=== PATIENT | female | born 1975 | race Caucasian/White ===

== ENCOUNTER 2023-12-07 09:08 | Emergency (ER) | payer BC, SELFPAY ==
[2023-12-07 09:22] VITALS: BP 126/87
[2023-12-07 10:09] LABS: % Basophils 0.5 % (0-2); % Eosinophils 2.3 % (0-6); % Immature Granulocytes 0.2 % (0-0.5); % Lymphocytes 21.8 % (20.5-51.1); % Monocytes 5.8 % (1.7-9.3); % Neutrophils 69.4 % (42.2-75.2); Absolute Basophils 0.1 10^3/uL (0-0.2); Absolute Eosinophils 0.2 10^3/uL (0-0.7); Absolute Lymphocytes 2.1 10^3/uL (1.2-3.4); Absolute Monocytes 0.6 10^3/uL (0.1-0.6); Absolute Neutrophils 6.6 10^3/uL (1.4-6.5); Hematocrit 40.1 % (37.0-47.0); Hemoglobin 13.6 g/dL (12.0-16.0); Mean Corp Hgb Conc. 33.9 g/dL (33.0-37.0); Mean Corpuscular Hgb 29.8 pg (27.0-31.0); Mean Corpuscular Volume 87.9 fL (81.0-99.0); Mean Platelet Volume 10.4 fL (7.4-10.4); Nucleated Red Blood Cells % 0 %; Platelet Count 276 10^3/uL (130-400); Red Blood Cell Count 4.56 10^6/uL (4.20-5.40); Red Cell Dist. Width 13.2 % (11.5-14.5); White Blood Cell Count 9.5 10^3/uL (4.8-10.8)
[2023-12-07 10:11] LABS: HCG, Serum Qualitative Screen Negative
[2023-12-07 10:13] LABS: ALT (SGPT) 30 U/L (0-35); AST (SGOT) 29 U/L (14-36); Albumin 4.2 g/dl (3.5-5.0); Alkaline Phosphatase 116 U/L (38-126); Blood Urea Nitrogen 11 mg/dl (7-17); Calcium 9.2 mg/dl (8.4-10.2); Carbon Dioxide 26 mmol/L (22-30); Chloride 106 mmol/L (98-107); Glucose 96 mg/dl (70-99); Lipase 105 U/L (23-300); Potassium 3.9 mmol/L (3.5-5.1); Sodium 137 mmol/L (135-145); Total Bilirubin 0.7 mg/dl (0.2-1.3); Total Protein 7.1 g/dl (6.3-8.2); eGFR > 60.00
[2023-12-07 10:24] LABS: Troponin I < 0.012 ng/ml
--- NOTE | 2023-12-07 11:12 | ED.GENMED ---
History of Present Illness
General
Chief Complaint: Chest Pain
Source: patient and family
Exam Limitations: none
Time Seen by Provider: 12/07/23 10:51
Travel History
Have you had any contact with someone who has COVID-19?: No
Do you have any symptoms of coronavirus? Fever > 100 degrees, chills, cough, shortness of breath, sore throat, loss of taste or smell, muscle aches, or headache?: No
History of Present Illness
History of Present Illness:
48-year-old female who presents with intermittent pain in her right lower chest wall/right upper quadrant of her abdomen that began this past Sunday while at work. The patient states she had really eaten anything that day but had a coffee. The
pain came on last about 50 minutes. She states she had another episode later in the day but was not that bad. Since then she has had occasional episodes but had one today that made her concerned. She states that radiate up toward her right neck.
No rash. She denies any hemoptysis. No shortness of breath. No palpitations. No injury. No leg swelling. No leg pain. Probable. No pain with eating.
Past History
Past History
ED Past Medical History: Other (Multiple sclerosis)
ED Past Surgical History: Tonsilectomy
Social History
Tobacco: Non-smoker
Drug: None
Personal:
Living: with family
Employment: Other
Family History
Family History: Other
Phy Exam
Physical Exam
Physical Exam:
CONSTITUTIONAL Patient alert and oriented to person, place and time. Well-appearing. Vital signs reviewed.
HEAD atraumatic, normocephalic.
EYES eyelids normal to inspection, Pupils equally round and reactive to light, Extraocular muscles intact, Conjunctiva normal, Sclera normal.
NECK normal range of motion, Trachea midline, no jugular venous distention.
RESPIRATORY CHEST No respiratory distress noted, Chest expansion equal, Bilateral breath sounds clear.
CARDIOVASCULAR regular rate and rhythm, Heart sounds normal.
ABDOMEN mild right upper quadrant tenderness, Bowel sounds normal. No distention.
BACK normal inspection, no obvious deformities
UPPER EXTREMITY range of motion normal, Motor strength normal, no cyanosis, no edema.
LOWER EXTREMITY range of motion normal, Motor strength normal, no cyanosis, no edema.
NEURO Speech normal, No focal motor deficits, Dodie coma scale 15, Memory normal, Cranial Nerves intact to screening exam.
SKIN skin warm, dry, and normal in color.
PSYCHIATRIC patient oriented to person place and time, Normal affect.
Scores
Heart Score for Chest Pain Patients
STEMI patient?: Not applicable
Course
Orders/Labs/Results
Orders:
Orders
12/07/23 09:09
ECG [Electrocardiogram (*1)] Urgent
Reason for Study: Chest Pain
EKG- Treatment ONCE
12/07/23 09:29
Test Result ONCE
12/07/23 09:47
Complete Blood Count/With Diff Urgent
Comprehensive Metabolic Panel Urgent
HCG, Serum Qualitative Screen Urgent
Lipase Urgent
Troponin I Urgent
12/07/23 11:15
Add On- LAB Stat
Tests Added?: lipase
12/07/23 12:10
US Abdomen Complete/Upper Urgent
Comment:
Reason For Exam: RUQ pain
12/07/23 12:24
DDimer [D-Dimer] Stat
12/07/23 13:51
CT Chest Pe Study Stat
Comment:
Reason For Exam: R sided cp, abnormal DDIMER
12/07/23 14:57
Morphine Sulfate 4 mg IV NOW STA
Abnormal Lab Results
12/07/23 12/07/23
09:47 12:24
Absolute Neuts (auto) 6.6 H 10^3/uL
(1.4-6.5)
D-Dimer 0.60 H ug/mlFEU
(0.00-0.50)
12/07/23 09:47
12/07/23 09:47
Vital Signs
Initial and Last Documented VS:
Initial Vital Signs
Temp Pulse Resp BP Pulse Ox
98.3 F 89 16 126/87 97
12/07/23 09:22 12/07/23 09:22 12/07/23 09:22 12/07/23 09:22 12/07/23 09:22
Last Documented Vital Signs
Temp Pulse Resp BP Pulse Ox
98.3 F 80 16 126/77 97
12/07/23 09:22 12/07/23 16:15 12/07/23 16:15 12/07/23 16:00 12/07/23 16:15
MDM/Problems Addressed
Differential Diagnosis Includes:
PE, gallbladder disease, pleuritis, pneumonia, pneumothorax
MDM/Problems Addressed:
Right-sided chest pain
*Radiology
Radiology exam reviewed: radiology read reviewed
*Pulse Oximetry
Patient hypoxic: no
*EKG
Interpreted by ED Provider?: Yes
Rate: normal
Rhythm: sinus
[place]: normal axis
QRS Pattern: normal QRS
Ischemia: no ischemia
*Gluing Machine Operator Automatic Interpretation
Rate: normal
Interpretation: normal
Rhythm: sinus
*Critical Care Note
Total Time (30-74mins, 75-104mins- exclusive of procedures): Not Applicable
Data Reviewed
Source: patient
Patient Management
Escalation/DeEscalation of care consider admission/obs:
EKG, troponin, PE study negative. Gallbladder study negative. Question pleuritis versus musculoskeletal cause versus other. Okay for discharge and outpatient PCP follow-up
ED Attending Note
-
Portions of this chart may have been created with voice recognition software.� Occasional wrong word or��sound alike� substitutions may have occurred due to the inherent limitations of voice recognition software.
Discharge Plan
Departure
Patient Disposition: Home (Routine Discharge)
Date of Disposition: 12/07/23
Time of Disposition: 16:03
Patient with high blood pressure during this ER visit?: No
Discharge Problem:
Atypical chest pain
Instructions: Chest Pain PCP Follow Up
Prescriptions:
No Action
cetirizine [Zyrtec] 5 MG tablet
5 mg PO DAILY AT 0700
acetaminophen 325 MG tablet
650 mg PO Q4HPRN PRN (Reason: mild pain/GASTELUM/temp> 100.4F) 0RF
levofloxacin 750 MG tablet
750 mg PO DAILY 7 Days Qty: 7 0RF
tizanidine 4 mg capsule
4 mg PO TID PRN (Reason: pain) Qty: 20 0RF
meloxicam 15 mg tablet
15 mg PO DAILY Qty: 20 0RF
oxycodone 5 mg tablet
5 mg PO Q8H PRN (Reason: severe pain) Qty: 6 0RF
Referrals:
Lexie Powell CRNP [Family Provider] -
Activity Restrictions/Additional Instructions:
Please see your doctor in the next 2 to 3 days for follow-up and reevaluation. Return immediately for worsening symptoms, vomiting, difficulty breathing or any other concerns. Please rest and use ibuprofen as needed for now.
Interventions
Interventions:
*Risk Screen - Suicide Last Done: 12/07/23 09:22
*General Assessment Last Done: 12/07/23 09:22
*Neglect/Abuse Screening Last Done: 12/07/23 09:22
ED- Fall Risk Assessment Last Done: 12/07/23 16:41
*ED COVID-19 Vaccine History Last Done: 12/07/23 11:41
*Nursing Disposition Last Done: 12/07/23 16:41
ED- Cardiac Assessment Last Done: 12/07/23 11:40
Discharge Date and Time
Discharge Date/Time: 12/07/23 16:43
[2023-12-07] MEDS: MORPHINE SULFATE 4 MG IV (15:01)
[2023-12-07 15:05] VITALS: BP 133/61
[2023-12-07 16:00] VITALS: BP 126/77
== END 2023-12-07 16:43 | disposition home or self-care (01) ==
LOC: EMR 09:08
PROVIDERS: Emergency Medicine; EMERGENCY PHYSICIAN Emergency Medicine; FAMILY PHYSICIAN Nurse Practitioner
DX: R07.89 Other chest pain (principal); G35 Multiple sclerosis
CPT/HCPCS: 99284; 71275; 76700; 80053; 83690; 84484; 84703; 85025; 85379; 93005; Q9967

== ENCOUNTER 2023-12-17 12:57 | Emergency (ER) | payer BC, SELFPAY ==
[2023-12-17 13:04] VITALS: BP 136/98
[2023-12-17 13:34] VITALS: BMI 45.2
--- NOTE | 2023-12-17 14:02 | ED.GENMED ---
History of Present Illness
General
Chief Complaint: Abdominal Pain
Source: patient
Exam Limitations: none
Time Seen by Provider: 12/17/23 13:51
Travel History
Have you had any contact with someone who has COVID-19?: No
Do you have any symptoms of coronavirus? Fever > 100 degrees, chills, cough, shortness of breath, sore throat, loss of taste or smell, muscle aches, or headache?: No
History of Present Illness
History of Present Illness:
48-year-old female presents with abdominal pain more so to the right side that has been ongoing since 2 days ago. It fairly constant and unchanged with eating or breathing. Pain does occasionally radiate to the left side. No associated urinary
symptoms. No fever. Was here 10 days ago for pleuritic pain to the right upper abdomen and underneath the right breast. PE study was negative ultrasound of the abdomen then was negative. No other complaints at this time
Past History
Past History
ED Past Medical History: Other (Multiple sclerosis)
ED Past Surgical History: Tonsilectomy
Social History
Tobacco: Non-smoker
Drug: None
Personal:
Living: with family
Employment: Other
Family History
Family History: Other
Phy Exam
Physical Exam
Physical Exam:
General: Well-appearing female no acute respiratory distress
HEENT: Normocephalic atraumatic neck is supple
Heart: Regular rate and rhythm no murmurs
Lungs: Clear to auscultation bilaterally no wheezing
Abdomen: Soft tender to the left lower quadrant and mildly to the epigastric area. No guarding rebound normal bowel sounds nondistended
Extremities: No cyanosis or edema
Skin: Warm no rash
Course
Orders/Labs/Results
Orders:
Orders
12/17/23 13:08
Complete Blood Count/With Diff Urgent
Comprehensive Metabolic Panel Urgent
HCG, Serum Qualitative Screen Urgent
Lipase Urgent
Test Result ONCE
12/17/23 14:01
CT Abd/pelvis W Iv Cont Urgent
Comment:
Reason For Exam: abdominal pain
12/17/23 14:48
HCG, Urine Qualitative Screen Urgent
Date Specimen was Collected: 12/17/23
Time Specimen was Collected: 13:08
Urinalysis Reflex To Culture Urgent
Date Specimen was Collected: 12/17/23
Time Specimen was Collected: 13:08
Urine Microscopic Reflex Cult Urgent
Urine Culture Urgent
DAGMAR Source: U
Specimen Description:
Date Specimen was Collected: 12/17/23
Time Specimen was Collected: 13:08
12/17/23 16:55
Ketorolac [Toradol] 15 mg IV NOW STA
12/17/23 17:10
Add On- LAB Urgent
Comments:: hcg urine
Tests Added?: hcg urine
12/17/23 19:24
LevoFLOXacin [Levaquin] 500 mg PO NOW STA
MetroNIDAZOLE [Flagyl] 500 mg PO NOW STA
Abnormal Lab Results
12/17/23
14:48
Ur Occult Blood Reflex 1+ A
(Negative)
Leukocyte Esterase Rfl Trace A
(Negative)
Urine Bacteria (Reflex) Moderate A
(Negative)
Vital Signs
Initial and Last Documented VS:
Initial Vital Signs
Temp Pulse Resp BP Pulse Ox
98.0 F 102 16 136/98 98
12/17/23 13:04 12/17/23 13:04 12/17/23 13:04 12/17/23 13:04 12/17/23 13:04
Last Documented Vital Signs
Temp Pulse Resp BP Pulse Ox
98.0 F 102 16 117/80 95
12/17/23 13:04 12/17/23 13:04 12/17/23 13:04 12/17/23 17:09 12/17/23 17:15
MDM/Problems Addressed
Differential Diagnosis Includes:
Abdominal pain - diverticulitis vs biliary colic vs appendicitis. Exam more tender over left lower abdomen. Recent PE study was negative. Will check labs, urine and CT of abdomen.
*Critical Care Note
Total Time (30-74mins, 75-104mins- exclusive of procedures): Not Applicable
Update Note
Update Note:
CT demonstrates acute uncomplicated sigmoid diverticulitis. Pain improved after Toradol. Will start Levaquin/Flagyl
ED Attending Note
-
Portions of this chart may have been created with voice recognition software.� Occasional wrong word or��sound alike� substitutions may have occurred due to the inherent limitations of voice recognition software.
Discharge Plan
Departure
Patient Disposition: Home (Routine Discharge)
Date of Disposition: 12/17/23
Time of Disposition: 19:52
Patient with high blood pressure during this ER visit?: No
Discharge Problem:
Diverticulitis
Instructions: Diverticulitis (DC)
Prescriptions:
New
levofloxacin 500 mg tablet
500 mg PO DAILY Qty: 9 0RF
metronidazole 500 mg tablet
500 mg PO TID Qty: 29 0RF
No Action
acetaminophen 325 MG tablet
650 mg PO Q4HPRN PRN (Reason: mild pain/GASTELUM/temp> 100.4F) 0RF
levocetirizine [Xyzal] 5 mg Tablet
5 mg PO DAILY
Referrals:
Lexie Powell CRNP [Family Provider] -
Alicia Lawrence DO [Active] -
Activity Restrictions/Additional Instructions:
Take antibiotics as directed. Drink plenty clear fluids. Use Tylenol if needed for pain. Follow-up with family doctor in urgent
Interventions
Interventions:
*Risk Screen - Suicide Last Done: 12/17/23 13:35
*General Assessment Last Done: 12/17/23 13:35
*Neglect/Abuse Screening Last Done: 12/17/23 13:35
*ED COVID-19 Vaccine History Last Done: 12/17/23 13:04
BI-Mozqfs-Whulgavtkv Assessment Last Done: 12/17/23 14:14
[2023-12-17 15:05] LABS: Urine Albumin Negative (Neg - Trace); Urine Bilirubin Negative (Negative); Urine Character Clear (Clear); Urine Color Yellow; Urine Glucose Negative (Negative); Urine Ketone Negative (Negative); Urine Leukocyte Trace (Negative); Urine Nitrite Negative (Negative); Urine Occult Blood 1+ (Negative); Urine Specific Gravity 1.015 (<1.030); Urine Urobilinogen Negative (Neg - 1+)
[2023-12-17 15:19] LABS: Urine Bacteria Moderate (Negative); Urine Red Blood Cell 0-2 /HPF (0-2)
[2023-12-17] MEDS: TORADOL 15 MG IV (17:03)
[2023-12-17 17:09] VITALS: BP 117/80
[2023-12-17 18:01] LABS: HCG, Urine Qualitative Screen Negative
[2023-12-17] MEDS: FLAGYL 500 MG PO (19:49)
[2023-12-17] MEDS: LEVAQUIN 500 MG PO (19:49)
[2023-12-17 20:08] VITALS: BP 114/74
== END 2023-12-17 20:13 | disposition home or self-care (01) ==
LOC: EMR 12:57
PROVIDERS: Emergency Medicine; EMERGENCY PHYSICIAN Emergency Medicine; FAMILY PHYSICIAN Nurse Practitioner
DX: K57.32 Diverticulitis of large intestine without perforation or abscess without bleeding (principal); G35 Multiple sclerosis
CPT/HCPCS: 99285; 96374; 74177; 81003; 81015; 81025; 87086; Q9967

== ENCOUNTER → 2025-01-16 14:18 | Outpatient (REF) | payer BC, SELFPAY | LOC: HWRAD 14:18 | PROVIDERS: ATTENDING PHYSICIAN Obstetrics & Gynecology Gynecology; FAMILY PHYSICIAN Internal Medicine | DX: Z12.31 Encounter for screening mammogram for malignant neoplasm of breast (principal) | CPT/HCPCS: 77063; 77067 ==

== ENCOUNTER → 2025-01-26 08:28 | Outpatient (REF) | payer BC, SELFPAY | LOC: WDC 08:28 | PROVIDERS: ATTENDING PHYSICIAN Obstetrics & Gynecology Gynecology; FAMILY PHYSICIAN Internal Medicine | DX: R92.8 Other abnormal and inconclusive findings on diagnostic imaging of breast (principal) | CPT/HCPCS: 76642 ==

== ENCOUNTER → 2025-01-27 08:08 | Outpatient (REF) | payer BC, SELFPAY | LOC: HWRAD 08:08 | PROVIDERS: ATTENDING PHYSICIAN Obstetrics & Gynecology Gynecology; FAMILY PHYSICIAN Internal Medicine | DX: N92.0 Excessive and frequent menstruation with regular cycle (principal) | CPT/HCPCS: 76830; 76856 ==